=== PATIENT | male | born 1975 | race Caucasian/White ===

== ENCOUNTER 2016-11-16 10:40 | Emergency (ER) | payer SELFPAY ==
[~2016-11-16] VITALS: Wt 84.0 kg
[2016-11-16 12:08] LABS: BASOPHILS % 0.3 % (0.0-2.0); EOSINOPHILS % 0.4 % (0.0-7.0); HEMATOCRIT 45.8 % (42.0-52.0); HEMOGLOBIN 15.2 g/dl (14.0-18.0); LYMPHOCYTES # 1.9 10^3/ul (0.8-2.9); MEAN CORPUSCULAR HGB CONC 33.2 g/dl (32.0-37.0); MEAN CORPUSCULAR VOLUME 87.3 fl (82.0-101.0); MEAN PLATELET VOLUME 8.4 fl (7.4-10.4); MONOCYTE # 0.2 10^3/ul (0.3-0.9); MONOCYTES % 3.8 % (0.0-11.0); NEUTROPHIL # 4.4 10^3/ul (1.6-7.5); NEUTROPHILS % 66.5 % (39.0-77.0); PLATELET COUNT 196 10^3/UL (140-440); RED BLOOD COUNT 5.25 10^6/ul (4.70-6.10); RED CELL DISTRIBUTION WIDTH 13.6 % (11.5-14.5); UNCORRECTED WBC 6.7 10^3/ul (4.8-10.8); WHITE BLOOD COUNT 6.7 10^3/ul (4.8-10.8)
[2016-11-16 12:20] LABS: ALBUMIN 4.4 g/dl (3.3-4.9); POTASSIUM 4.5 mmol/L (3.5-5.1)
[2016-11-16 12:22] LABS: BILIRUBIN,INDIRECT 1.1 mg/dl (0-1.1); BILIRUBIN,TOTAL 1.1 mg/dl (0.2-1.3); CREATININE 1.2 mg/dl (0.61-1.24)
[2016-11-16 12:23] LABS: ALBUMIN/GLOBULIN RATIO 1.29; CALCIUM 9.3 mg/dl (8.4-10.2); TOTAL PROTEIN 7.8 g/dl (6.1-8.1)
--- NOTE | 2016-11-16 12:23 | RADRPT ---
PROCEDURE: Retroperitoneal US. CLINICAL INDICATION: Flank pain TECHNIQUE: Multiple sonographic images of the kidneys and retroperitoneum were obtained. The imag es were reviewed on a PACS workstation. COMPARISON: No prior studies are available for comparison. FINDINGS: The kidneys are normal in size, contour, cortical thickness and cortical echogenicity. The right kidney measures 10.8 cm. The left kidney measures 10.2 cm. No kidney stones are visualized. There is mild to moderate right-sided hydronephrosis. The urinary bladder is partially decompressed and not well seen. RPTAT: AA IMPRESSION: Mild to moderate right-sided hydronephrosis. .Mark Gross MD, MD Date Time Electronically viewed and signed by .Mark Gross MD, on 11/16/2016 12:23 .S/
[2016-11-16 12:40] LABS: CONDITION 1
[2016-11-16 12:44] LABS: ADD UMIC NO; URINE BILIRUBIN (Dip) NEGATIVE (NEGATIVE); URINE BLOOD (Dip) NEGATIVE (NEGATIVE); URINE COLOR LT. YELLOW (YELLOW); URINE GLUCOSE (Dip) NEGATIVE (NEGATIVE); URINE KETONES (Dip) TRACE (NEGATIVE); URINE LEUKOCYTE ESTERASE (Dip) NEGATIVE (NEGATIVE); URINE NITRITE (Dip) NEGATIVE (NEGATIVE); URINE TOTAL PROTEIN (Dip) NEGATIVE (NEGATIVE); URINE UROBILINOGEN (Dip) 0.2 E.U./dL (0.1-1.0)
--- NOTE | 2016-11-16 14:50 | RADRPT ---
PROCEDURE: CT Abdomen and pelvis without contrast. CLINICAL INDICATION: Right flank pain, hydronephrosis TECHNIQUE: CT scan of the abdomen and pelvis with contrast was performed on a multidetector high-r esolution CT scan. . Coronal and sagittal reformatted images were obtained from the axial source i mages. Standard CT scan of the abdomen pelvis without contrast protocols were performed. The total exam CTDI equals 15.37 mGy and the total exam DLP equals 867.48 mGy-cm. One or more of the following dose reduction techniques were used: - Automated exposure control. - Adjustment of the mA and/or kV according to patient size. Use of iterative reconstruction technique. COMPARISON: Abdominal ultrasound. Same day. FINDINGS: There is moderate to severe dilatation of the right pelvocaliceal system with a normal-a ppearing right ureter and no evidence of calcified calculi. These findings likely chronic UPJ obstr uction and recommend clinical correlation. No evidence of left hydronephrosis. No evidence of left renal calcified calculi. The urinary bladder is somewhat contracted but otherwise unremarkable. T here are no intra renal masses bilaterally. The liver spleen pancreas and adrenal glands are normal size configuration without focal lesions. The gallbladder is unremarkable and there is no evidence of biliary ductal dilation. The stomach and small bowel are unremarkable. There is colonic divert iculosis but no CT scan evidence of diverticulitis. The appendix is unremarkable. There is trace f ree fluid posterior to the right inferior urinary bladder. No other intra-abdominal free fluid. Ne gative for intra-abdominal free air abscesses. No evidence of abdominal or pelvic lymphadenopathy. The lung bases are unremarkable. There is degenerative changes lower thoracic and lumbar spine. N o acute osseous findings. No evidence of osteoblastic or osteolytic lesions. IMPRESSION: 1. Moderate to severe dilatation of the right pelvocaliceal system of the normal appearing proximal right ureter consistent with chronic UPJ obstruction. Recommend clinical correlation. 2. No evidence of calcified urinary calculi or left obstructive uropathy. 3. Trace free fluid in the posterior right pelvis. No intra-abdominal abscess or free air. 4. Colonic diverticulosis without CT scan evidence of diverticulitis. RPTAT:AAJJ B Juan Physician Date Time Electronically viewed and signed by Tereza Martinez Physician on 11/16/2016 14:50 BM/
[2016-11-16] MEDS ORDERED: IBUP-1542 PO (15:35)
--- NOTE | 2016-11-16 15:51 | ERD ---
ER Documentation Chief Complaint Date/Time DATE: 11/16/16 TIME: 15:42 Chief Complaint r. burning back pain HPI 41-year-old male complaining of right flank pain. Describes pain as burning. Patient stated that he has this pain on and off over more than 15 years, but in the last 1-2 weeks the pain has becoming more constant. 2 weeks ago, he went to the clinic. He got blood tests, was told that he has elevated GFR. Patient is very concerned that he may have kidney failure, stating that his sister from kidney failure secondary to diabetes. Patient also reports decreased appetite, with recent weight loss. Denies fever or chills. Denies dysuria. Denies hematuria. ROS All systems reviewed and are negative except as per history of present illness. Medications Home Meds Active Scripts Ibuprofen* (Motrin*) 600 Mg Tab, 600 MG PO Q6H Y for PAIN AND OR ELEVATED TEMP, #30 TAB Prov:MORRIS CRUZ. VEHICLE CARE SPECIALIST 11/16/16 Allergies Allergies: Coded Allergies: No Known Allergy (Unverified , 11/16/16) PMhx/Soc Medical and Surgical Hx: pt denies Medical Hx, pt denies Surgical Hx Hx Alcohol Use: No Hx Substance Use: No Smoking Status: Never smoker Physical Exam Vitals Vital Signs Date Time Temp Pulse Resp B/P Pulse Ox O2 Delivery O2 Flow Rate FiO2 11/16/16 10:46 98.0 70 20 133/83 100 Physical Exam General impression: Well-developed, well-nourished. Alert, oriented, in no acute distress Head: Normocephalic, atraumatic. Eyes: PERRL, EOM normal. Conjunctiva not injected. Neck: Supple, nontender. No lymphadenopathy. No nuchal rigidity. Respiration: Normal respiratory effort. Lungs clear to auscultate bilaterally. No wheezes, rales or rhonchi. Cardiovascular: Regular rate and rhythm. No murmurs or extra heart sounds. Abdomen: Abdomen normal to inspection. Nontender. No masses or organomegaly. Bowel sounds normal. Back: Normal to inspection. No midline spine tenderness. Right CVA tenderness. Neuro: Mental status normal, speech normal. PATIENT SERVICES REP grossly intact. Skin: Normal turgor. No rash or lesions. Psych: Normal mood and affect. Result Diagram: 11/16/16 1151 11/16/16 1151 Results 24 hrs Laboratory Tests Test 11/16/16 11:51 Alanine Aminotransferase (ALT/SGPT) 37IU/L Albumin 4.4g/dl Albumin/Globulin Ratio 1.29 Alkaline Phosphatase 102IU/L Anion Gap 17 Aspartate Amino Transf (AST/SGOT) 40IU/L Basophils # 0.010^3/ul Basophils % 0.3% Blood Urea Nitrogen 12mg/dl Calcium Level 9.3mg/dl Carbon Dioxide Level 27mmol/L Chloride Level 105mmol/L Creatinine 1.20mg/dl Direct Bilirubin 0.00mg/dl Eosinophils # 0.010^3/ul Eosinophils % 0.4% Globulin 3.40g/dl Glucose Level 95mg/dl Hematocrit 45.8% Hemoglobin 15.2g/dl Indirect Bilirubin 1.1mg/dl Lymphocytes # 1.910^3/ul Lymphocytes % 29.0% Mean Corpuscular Hemoglobin 29.0pg Mean Corpuscular Hemoglobin Concent 33.2g/dl Mean Corpuscular Volume 87.3fl Mean Platelet Volume 8.4fl Monocytes # 0.210^3/ul Monocytes % 3.8% Neutrophils # 4.410^3/ul Neutrophils % 66.5% Nucleated Red Blood Cells # 0.010^3/ul Nucleated Red Blood Cells % 0.0/100WBC Platelet Count 01011^3/UL Potassium Level 4.5mmol/L Red Blood Count 5.2510^6/ul Red Cell Distribution Width 13.6% Sodium Level 144mmol/L Total Bilirubin 1.1mg/dl Total Protein 7.8g/dl Urine Bilirubin NEGATIVE Urine Clarity CLEAR Urine Color LT. YELLOW Urine Glucose NEGATIVE% Urine Hemoglobin NEGATIVE Urine Ketones TRACE Urine Leukocyte Esterase NEGATIVE Urine Nitrite NEGATIVE Urine Specific [place] <=1.005 Urine Total Protein NEGATIVE Urine Urobilinogen 0.2 E.U./dL Urine pH 6.0 White Blood Count 6.710^3/ul Procedures/MDM 41-year-old male presents to ED with chronic right flank pain. CBC, CMP, and UA are all negative. BUN and creatinine are within the normal range at 12 and 1.2 respectively. Renal ultrasound showed mild to moderate right-sided hydronephrosis. CT abdomen and pelvis without IV contrast also obtained. CT showed moderate to severe dilatation of the right pelvocaliceal system of the normal appearing proximal right ureter consistent with chronic UPJ obstruction. I consulted with Dr. Guan regarding the patient. Since patient's condition is chronic, his creatinine is within the normal range, no emergent intervention is needed. Patient is advised to follow-up with her primary care provider for urology referral. Patient appears well, stable for discharge and outpatient management. Medical decision making shared with patient and family. Education provided to patient and family. Patient and family expressed understanding of the plan. Medications on discharge: Ibuprofen. Follow-up: Primary care provider in 2-3 days or return to ED if worse. Departure Diagnosis: Primary Impression: Flank pain Additional Impression: UPJ (ureteropelvic junction) obstruction Condition: Good Patient Instructions: Flank Pain, Uncertain Cause Referrals: [facility] se galvan hecho un examen mdico de control que le indica que no est en ryley condicin que requiera tratamiento urgente en el Departamento de Emergencia. Un estudio ms profundo y el tratamiento de rosario condicin pueden esperar sin ningn riesgo hasta que usted sea atendida/o en el consultorio de rosario mdico o ryley cl carl. Es responsabilidad suya arreglar ryley joesph para el seguimiento del fred. MANEJO DE CONDICIONES NO URGENTES EN EL FUTURO 1) Si usted tiene un mdico de atencin primaria: Usted debera llamar a rosario mdico de atencin primaria antes de venir al departamento de emergencia. Despus de las horas de consultorio, rosario doctor o rosario asociado/a est disponible por telfono. El mdico o enfermero de dami en el servicio telefnico puede asesorarle por isreal medio para atender el problema, o fred contrario se puede programar ryley joesph. 2) Si usted no tiene un mdico de atencin primaria: Llame al mdico o clnica de referencia que aparece abajo rohith las horas de consultorio para hacer ryley joesph para que le vean. CLINICAS: [facility] [phone] [facility] [phone] [facility] [phone] [place] [id number] [phone] [facility] [phone] [id number] [facility] [phone] [address] Additional Instructions: Llame al doctor MAANA y sheri ryley JOESPH PARA DENTRO DE 2-3 COOPER.Dgale a la secretaria que nosotros le instruimos hacer esta joesph.Avise o llame si rosario condicin se empeora antes de la joesph. Regresa aqui si peor o no mejor. MORRIS CRUZ. LAUREL Nov 16, 2016 15:51
== END 2016-11-16 15:55 | disposition home or self-care (01) ==
LOC: FTE 10:40
DX: R10.9 Unspecified abdominal pain (principal); N13.0 Hydronephrosis with ureteropelvic junction obstruction
CPT/HCPCS: 74176; 76775; 80053; 81003; 85025